=== PATIENT | female | born 1990 | race Caucasian/White ===

== ENCOUNTER 2016-07-20 15:36 | Emergency (ER) | payer OTHER ==
[~2016-07-20] VITALS: Ht 165.1 cm; Wt 80.0 kg
[~2016-07-20 15:36] MED LIST: FERR240T9 PO; PRENAT PO
[2016-07-20 15:44] VITALS: Ht 165.1 cm; Wt 80.0 kg
[2016-07-20] MEDS ORDERED: KETOROLAC 60 MG INJ IM STA (17:34)
[2016-07-20] MEDS ORDERED: ONDANSETRON (ODT) 4 MG TAB ODT STA (17:34)
[2016-07-20 17:53] LABS: URINE BLOOD (Dip) POC Trace-lysed (NEGATIVE)
[2016-07-20] MEDS ORDERED: ONDA8TAB14 PO (18:03)
[2016-07-20] MEDS ORDERED: BUTA1CAP38 PO (18:03)
--- NOTE | 2016-07-20 18:07 | ERD ---
ER Documentation Chief Complaint Date/Time DATE: 07/20/16 TIME: 18:06 Chief Complaint HEADACHE WITH NAUSEA/VOMITING X 3 HOURS HX OF MIGRAINES HPI This 26-year-old female presents with headache and nausea for 3 hours. She has a history of similar headaches. Is behind the her on the left side. She is CT scans and has been told she has migraines. She has nausea and photophobia. She denies any weakness, bowel or bladder incontinence, history of trauma, additional symptoms. She may have had a URI last week. ROS All systems reviewed and are negative except as per history of present illness. Medications Home Meds Active Scripts Ondansetron (Ondansetron Odt) 8 Mg Tab.rapdis, 8 MG PO Q6H Y for NAUSEA AND/OR VOMITING, #10 TAB Prov:KI VENTURA MD 07/20/16 Lkgizopgxd-Chrvfiykcheid-Dovzgpjx* (Fioricet*) 50-300-40 Mg Capsule, 1 CAP PO Q4H Y for PAIN, #20 CAP Prov:KI VENTURA MD 07/20/16 Reported Medications Ferrous Gluconate (Iron) 1 Tab Tablet, 1 TAB PO DAILY, TAB 05/07/15 Multivit/Min/Fol Ac/Iron/Pren* ( S*) 1 Tab Tab, 1 TAB PO DAILY, TAB 05/07/15 Allergies Allergies: Coded Allergies: No Known Allergy (Unverified , 05/07/15) PMhx/Soc Medical and Surgical Hx: pt denies Medical Hx, pt denies Surgical Hx Physical Exam Vitals Vital Signs Date Time Temp Pulse Resp B/P Pulse Ox O2 Delivery O2 Flow Rate FiO2 07/20/16 15:44 97.2 64 18 138/67 99 Physical Exam Const: [] Alert, [id number] although uncomfortable and prefers her eyes covered. Head: Atraumatic Eyes: Normal Conjunctiva. Eyes are PERRLA and extraocular movements intact. ENT: Normal External Ears, Nose and Mouth. Neck: Full range of motion..~ No meningismus. Resp: Clear to auscultation bilaterally Cardio: Regular rate and rhythm, no murmurs Abd: Soft, non tender, non distended. Normal bowel sounds Skin: No petechiae or rashes Back: No midline or flank tenderness Ext: No cyanosis, or edema Neur: Awake and alert. Cranial nerves II through XII grossly intact. Normal gait. No appreciable focal neurologic deficits. Psych: Normal Mood and Affect Results 24 hrs Laboratory Tests Test 07/20/16 17:52 Bedside Urine pH (LAB) 6.5 Bedside Urine Protein (LAB) Trace Bedside Urine Glucose (UA) Negative Bedside Urine Ketones (LAB) Negative Bedside Urine Blood Trace-lysed Bedside Urine Nitrite (LAB) Negative Bedside Urine Leukocyte Esterase (L Negative Current Medications Medications (Trade) Dose Ordered Sig/Minna Route PRN Reason Start Time Stop Time Status Last Admin Dose Admin Ketorolac Tromethamine (Toradol) 60 mg ONCE STAT IM 07/20/16 17:34 07/20/16 17:36 DC 07/20/16 17:51 Ondansetron HCl (Zofran Odt) 8 mg ONCE STAT ODT 07/20/16 17:34 07/20/16 17:36 DC 07/20/16 17:51 Procedures/MDM Urine is negative for glucose and signs of infection. HCG is negative. Patient was given Toradol 60 mg IM and Zofran 8 mg of mouth. Patient presents with a left-sided headache nausea and photophobia suggestive of a migraine type headache. Given the history of similar headaches signs and symptoms do not suggest internal bleeding, mass-effect, meningitis, neurologic deficit. She will treated with Zofran and Fioricet at home and further observation and primary care follow-up. The patient was stable with no new complaints during the ER course. Clinically, there is no current evidence to suggest meningitis, sepsis, acute abdomen, pneumonia, acute coronary syndrome, pulmonary embolism, or any other emergent condition appearing to require further evaluation or hospitalization. The patient should certainly return for any new or worsening symptoms per the aftercare instructions. They should otherwise follow-up with her primary care doctor for reevaluation this week. Departure Diagnosis: Primary Impression: Headache Headache type: unspecified Headache chronicity pattern: unspecified pattern Intractability: not intractable Qualified Code: R51 - Nonintractable headache, unspecified chronicity pattern, unspecified headache type Condition: Stable Patient Instructions: Headache, Unspecified Additional Instructions: Recheck with primary doctor or for new or worsening symptoms. KI VENTURA MD Jul 20, 2016 18:07
== END 2016-07-20 18:21 | disposition home or self-care (01) ==
LOC: FTE 15:36
DX: R51 Headache (principal); R11.2 Nausea with vomiting, unspecified
CPT/HCPCS: 81003; 96372; J1885; Z7502; Z7610

== ENCOUNTER 2018-01-01 14:17 | Emergency (ER) | END 2018-01-01 17:03 | disposition home or self-care (01) ==

== ENCOUNTER 2018-01-10 03:50 | Emergency (ER) | END 2018-01-10 05:27 | disposition home or self-care (01) ==